=== PATIENT | male | born 1950 | race Caucasian/White ===

== ENCOUNTER 2019-07-10 15:00 | Outpatient (RCR) | payer OTHER, MEDICARE, SELFPAY ==
[2019-06-25 09:22] VITALS: BMI 35.5
[2019-06-25 09:31] VITALS: BMI 35.5
== END 2019-09-23 23:59 | disposition home or self-care (01) ==
LOC: ANHDMC 15:00
PROVIDERS: PCP Family Medicine; Visit Provider Family Medicine
DX: E11.65 Type 2 diabetes mellitus with hyperglycemia (principal); Z71.3 Dietary counseling and surveillance; Z71.89 Other specified counseling
CPT/HCPCS: 97802; G0108

== ENCOUNTER → 2019-09-22 10:15 | Outpatient (CLI) | payer MEDICARE, SELFPAY ==
--- NOTE | ~2019-09-22 | XR_ITS ---
EXAMINATION: XR shoulder LT min 2V DATE: 09/22/2019 10:47 INDICATION: Chronic left shoulder pain. TECHNIQUE: 4 views of left shoulder were obtained. COMPARISON: None. FINDINGS: Bone alignment is normal. No fracture. There is mild osteoarthritis of glenohumeral joint a nd acromioclavicular joint characterized by tiny osteophytes. IMPRESSION: 1. Mild polyarticular osteoarthritis. Reviewed, dictated and finalized at location A. RIENCE PLANNING STRATEGIST
--- NOTE | ~2019-09-22 | XR_ITS ---
EXAMINATION: XR elbow LT min 3V DATE: 09/22/2019 10:47 INDICATION: Chronic left elbow pain. TECHNIQUE: 4 views of left elbow were obtained. COMPARISON: None. FINDINGS: Bone alignment is normal. No fracture. There is mild elbow joint osteoarthritis characteriz ed by tiny marginal osteophytes. There are enthesophytes at the medial and lateral humeral epicondyle s. No joint effusion. IMPRESSION: 1. Mild elbow joint osteoarthritis. Reviewed, dictated and finalized at location A. D PROTECTIVE SERVICES SPECIALIST
== END ==
PROVIDERS: PCP Family Medicine; Visit Provider Family Medicine
DX: G89.29 Other chronic pain (principal); M19.012 Primary osteoarthritis, left shoulder; M19.022 Primary osteoarthritis, left elbow
CPT/HCPCS: 73030; 73080

== ENCOUNTER 2019-11-13 12:30 | Outpatient (RCR) | payer MEDICARE, SELFPAY ==
--- NOTE | 2019-10-10 15:56 | PTOPEVAL ---
INITIAL PHYSICAL THERAPY EVALUATION and PLAN OF CARE Thank you for referring ADY to [facility]. He will be seen in PT 2x/wk for 2 wks, then 1x/wk for 3 wks. Please review, sign, date and return this plan of care SRIKANTH. I agree with and certify that the following plan of care is medically necessary. Referring Physician Date Admitting Provider: Attending Provider: Clifford Vasquez MD Referring Provider: *PT Outpatient Evaluation Start: 10/10/19 12:47 Freq: Status: Active Protocol: Document 10/10/19 12:47 FOREIGN (Rec: 10/10/19 14:26 FOREIGN [id number]) Therapy Assessment Status Assessment Status Assessment Status Evaluation Outpatient Past Medical History Neurological History Hx Cerebrovascular Accident (CVA) Yes: father Hx Dementia Yes: mother Hx Migraine Yes: with change of weather Cardiovascular History Hx Hypercholesterolemia Yes Hx Hypertension Yes Respiratory History Hx Respiratory Disorders No Significant History Gastrointestinal History Hx Gastrointestinal Disorders No Significant History Genitourinary History Hx Genitourinary Disorders No Significant History Musculoskeletal History Hx Arthritis Yes Hx Other Musculoskeletal Disorders Yes: bilat carpal tunnel surgery Endocrine History Hx Diabetes Yes Evaluation Information Problem Diagnosis L shoulder pain - biceps tendinitis Onset May 2019 Subjective Information ADY reports that his shoulders Query Text:As Reported By Patient/ always cracked, pop with Family movement even as a kid. Fall 2018 - Dragging limbs with lawn tractor - L arm got pulled behind him. Arm began to hurt him a few days after - then eventually discomfort went away. Earlier trauma - in the summer - fell down on step ladder - caught himself on ladder with his shoulders in odd position - didn't have as much pain as he thought he would. In May - began exercising due to being dx with DM. Was using light weights with UE's - began to have L shoulder pain. Has progressed to 10# dumb bells. This past week - L shoulder hasn't been too bad.
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
== END 2019-11-13 14:50 | disposition home or self-care (01) ==
LOC: ANHPT 12:30
PROVIDERS: PCP Family Medicine; Visit Provider Orthopaedic Surgery
DX: M75.22 Bicipital tendinitis, left shoulder (principal)
CPT/HCPCS: 97110; 97140; 97161

== ENCOUNTER 2020-03-05 14:46 | Outpatient (CLI) | payer MEDICARE, SELFPAY | END 2020-03-05 14:47 | disposition home or self-care (01) | LOC: ANHAUDIO 14:49 | PROVIDERS: PCP Family Medicine; Visit Provider Otolaryngology | DX: H90.3 Sensorineural hearing loss, bilateral (principal) | CPT/HCPCS: 92557; 92567 ==

== ENCOUNTER 2020-03-12 13:35 | Outpatient (CLI) | payer MEDICARE, SELFPAY ==
--- NOTE | ~2020-03-12 | CT_ITS ---
EXAMINATION: CT sinus wo con DATE: 03/12/2020 14:15 INDICATION: Nasal polyps TECHNIQUE: Computed tomography (CT) of the paranasal sinuses was performed without intravenous contra st. Coronal reconstructions were obtained. Iterative reconstruction technique was employed. The dose- length product was 265.49 mGy-cm. COMPARISON: None FINDINGS: Mild to moderate mucosal thickening throughout the bilateral ethmoid, maxillary and sphenoid sinuses and at the bilateral frontoethmoidal recesses. Bilateral ostiomeatal units are patent. There is conch a bullosa of the bilateral middle turbinates. There is mild rightward deviation of the nasal septum w ith right-sided spike. Orbits are normal. Moderate osteoarthritis at the left temporomandibular joint . Mastoid air cells and middle ear cavities are clear. IMPRESSION: 1. Mild to moderate mucosal thickening throughout the paranasal sinuses. Reviewed, dictated and finalized at location A.
== END 2020-03-12 13:36 | disposition home or self-care (01) ==
PROVIDERS: PCP Family Medicine; Visit Provider Otolaryngology
DX: J32.9 Chronic sinusitis, unspecified (principal); J34.2 Deviated nasal septum
CPT/HCPCS: 70486

== ENCOUNTER 2020-03-21 08:51 | Outpatient (CLI) | payer MEDICARE, SELFPAY ==
--- NOTE | ~2020-03-21 | MR_ITS ---
. EXAMINATION: MR IAC wo/w con DATE: 03/21/2020 10:52 INDICATION: Other specified hearing loss, unspecified ear. TECHNIQUE: Magnetic resonance imaging (MRI) of the brain, brainstem, and internal auditory canals was performed without and with 20 mL MultiHance intravenous contrast. Sequences included sagittal and ax ial T1-weighted FSE, axial diffusion-weighted FS EPI, axial T2*-weighted GRE, axial T2-weighted FLAIR Propeller, axial T2-weighted Propeller, small ftpzr-li-yder coronal FIESTA, small nqdhb-bk-gldk jacqueline nal T1-weighted FSE, and small hoitl-xb-emmh axial T1-weighted SPGR. Postcontrast sequences included axial T1-weighted FSE, small zdxbf-oe-uxrm coronal T1-weighted FSE, and small rixqb-bw-vmjp axial T1- weighted SPGR. Apparent diffusion coefficient (ADC) maps were created. COMPARISON: Sinuses CT 03/12/2020 FINDINGS: There are scattered areas of nonspecific increased T2-weighted signal intensity in the cere bral white matter, which is within normal limits for the patient's age. There is no intracranial hemo rrhage, acute infarction, or abnormal intracranial mass lesion. The ventricles are normal in size. Th ere is mucosal thickening in the paranasal sinuses. The orbits are normal. The internal auditory phu ls and inner and middle ears are normal. IMPRESSION: 1. Normal aging brain. Reviewed, dictated and finalized at location A. IMPRESSION: 1. Normal aging brain.
[2020-03-21 10:25] LABS: Estimated Glomerular Filt Rate > 60
== END 2020-03-21 08:52 | disposition home or self-care (01) ==
LOC: ANHIMG 08:57
PROVIDERS: PCP Family Medicine; Visit Provider Otolaryngology
DX: H90.8 Mixed conductive and sensorineural hearing loss, unspecified (principal)
CPT/HCPCS: 70553; A9577

== ENCOUNTER 2020-05-29 00:27 | Outpatient (CLI) | payer MEDICARE, SELFPAY ==
[2020-05-29 18:04] LABS: SARS-CoV-2 RNA PCR Negative
== END 2020-05-29 00:28 | disposition home or self-care (01) ==
LOC: ANHCOVIDDT 00:27
PROVIDERS: PCP Family Medicine; Visit Provider Internal Medicine Gastroenterology
DX: Z01.812 Encounter for preprocedural laboratory examination (principal); Z20.828 Contact with and (suspected) exposure to other viral communicable diseases
CPT/HCPCS: 87635; C9803; U0003

== ENCOUNTER 2020-06-29 00:33 | Outpatient (CLI) | payer MEDICARE, SELFPAY ==
[2020-06-29 18:51] LABS: SARS-CoV-2 RNA PCR Negative
== END 2020-06-29 00:34 | disposition home or self-care (01) ==
LOC: ANHCOVIDDT 00:33
PROVIDERS: PCP Family Medicine; Visit Provider Internal Medicine Gastroenterology
DX: Z01.812 Encounter for preprocedural laboratory examination (principal); Z20.828 Contact with and (suspected) exposure to other viral communicable diseases
CPT/HCPCS: 87635; C9803; U0003

== ENCOUNTER 2020-07-02 00:31 | Day surgery (SDC) | payer MEDICARE, SELFPAY ==
[2020-05-26 09:47] VITALS: BMI 37.8
[2020-06-25 10:21] VITALS: BMI 37.8
[2020-07-02 11:39] VITALS: BP 139/68; PULSE 62; RESP 18; TEMP 36.2; O2SAT 98
--- NOTE | 2020-07-02 11:46 | WPDANESEPPF ---
Anes - Initial Pre Proc Eval Procedure: Operation Date: 07/02/20 13:00 Proposed Procedures p Screening Colonoscopy - Dean Ortiz MD Date/Time: 07/02/20 11:46 Surgeon: Dean Ortiz MD Pre Op Diagnosis: neoplasm screening Patient Data Age: 70 Gender: M Height: 5 ft 6.5 in Weight: 102.9 kg Last Vital Signs Temp 97.2 F L 07/02/20 11:39 Pulse 62 07/02/20 11:39 Resp 18 07/02/20 11:39 BP 139/68 07/02/20 11:39 Pulse Ox 98 07/02/20 11:39 Allergies Allergy/AdvReac Type Severity Reaction Status Date / Time No Known Allergies Verified 07/02/20 11:37 Home Medications Medication Instructions Recorded Confirmed Type amlodipine 5 mg tablet 5 mg PO DAILY 06/09/19 05/26/20 History finasteride 5 mg tablet 5 mg PO DAILY 06/09/19 05/26/20 History rizatriptan 10 mg tablet See Rx Instructions PO .COMPLEX 06/09/19 05/26/20 History pen needle, diabetic 32 gauge x #100 each 10/27/19 05/25/20 Rx 5/32 lancets #102 each 10/29/19 05/25/20 Rx hydrochlorothiazide 12.5 mg capsule 12.5 mg PO DAILY #30 cap 12/16/19 05/26/20 Rx terbinafine HCl 250 mg tablet 250 mg PO DAILY #90 tablet 03/31/20 05/26/20 Rx blood-glucose meter #100 ea 05/10/20 05/25/20 Rx insulin glargine 100 unit/mL (3 13 unit SUB-Q DAILY ml 05/25/20 06/25/20 History mL) subcutaneous pen acetaminophen [Tylenol] 325 mg PO ONCE PRN 05/26/20 05/26/20 History cetirizine 10 mg PO DAILY 05/26/20 05/26/20 History cyclosporine [Restasis] 1 drp OPHTHALMIC (EYE) BID 05/26/20 05/26/20 History multivitamin [Men's Multi-Vitamin] 1 tablet PO DAILY 05/26/20 05/26/20 History naproxen [Naprosyn] 250 mg PO BID PRN 05/26/20 05/26/20 History quinapril 40 mg tablet 40 mg PO DAILY #90 tablet 06/21/20 06/25/20 Rx sitagliptin 100 mg tablet 100 mg PO DAILY #90 tablet 06/21/20 06/25/20 Rx tamsulosin 0.4 mg capsule 0.4 mg PO DAILY #90 cap 06/21/20 06/25/20 Rx simvastatin 40 mg tablet 40 mg PO HS #90 tablet 06/22/20 06/25/20 Rx Patient hx anesthesia problems: none Family hx anesthesia problems: none PMFSH Past Medical History Medical History (Updated 05/25/20 @ 10:16 by Jackson Castro MD) Biceps tendinitis of left shoulder BPH without obstruction/lower urinary tract symptoms Carpal tunnel syndrome Chronic left shoulder pain Chronic low back pain with right-sided sciatica Chronic pain of left elbow Colon cancer screening Controlled diabetes mellitus with long-term current use of insulin Degenerative arthritis of left shoulder region Deviated nasal septum Dry eyes Essential (primary) hypertension Hearing loss Migraine without aura and without status migrainosus, not intractable Mixed hyperlipidemia Nocturia Osteoarthritis involving multiple joints on both sides of body Recurrent erosion of left cornea Seasonal allergic rhinitis Tinnitus Uncontrolled type 2 diabetes mellitus with hyperglycemia, with long-term current use of insulin Family History Family History Mother Diabetes mellitus Family history of Alzheimer's disease Family history of dementia, Onset Age: 88 Grandparent Diabetes mellitus, Onset Age: 70 Sibling Patient's sister is , Onset Age: 60 Social History Social History Smoking status: Never smoker Alcohol intake: current Drinks per week: 1 Substance use: never Substance use type: does not use Living arrangements: with family Additional occupation/education comments: Retired from [employer] Spiritual care concerns: No Anes - Eval Final PreProcedure Day of Procedure 07/02/20 11:46 Patient weight: obese Heart: regular rate and rhythm Lungs: clear to auscultation Airway: Mallampati scale class II Neurological: alert and oriented Last oral intake: >/= 8 hours ASA classification: III Emergent: no Anesthetic plan: proce
[2020-07-02] MEDS: LACTATED RINGERS 1,000 ML 150 ML IV CONT (11:50)
[2020-07-02 11:51] LABS: Glucose Point of Care 105 (65-105)
--- NOTE | 2020-07-02 12:38 | PM.HPGS ---
History of Present Illness History of Present Illness Consent: Risks, benefits, and alternatives have been discussed and questions answered. Patient agrees to proceed with procedure. Chief complaint: neoplasm screening Narrative: Emerson Garcia Jr. is a 70 year old male here for screening colonoscopy, last one about 9 years ago. Review of Systems Constitutional: Constitutional: Denies headache(s) and Denies weakness Eyes: Eyes: Denies blurry vision ENT: Reports Normal hearing present, Denies headache(s) and Denies neck pain Cardiovascular: Cardiovascular: Denies chest pain and Denies dyspnea Respiratory: Respiratory: Denies dyspnea Gastrointestinal: Gastrointestinal: Reports no additional gastrointestinal complaints Genitourinary: Genitourinary: Denies dysuria Musculoskeletal: Musculoskeletal: Denies neck pain Integumentary/Breasts: Skin/Breast: Denies dry skin Neurologic: Reports Normal hearing present, Denies headache(s) and Denies weakness Psychiatric: Psychiatric: Denies anxiety Endocrine: Endocrine: Denies change in body appearance Hematologic/Lymphatic: Hematologic/Lymphatic: Denies easy bleeding Allergic/Immunologic: Allergic/Immunologic: Denies urticaria PMFSH Past Medical History Medical History (Updated 05/25/20 @ 10:16 by Jackson Castro MD) Biceps tendinitis of left shoulder BPH without obstruction/lower urinary tract symptoms Carpal tunnel syndrome Chronic left shoulder pain Chronic low back pain with right-sided sciatica Chronic pain of left elbow Colon cancer screening Controlled diabetes mellitus with long-term current use of insulin Degenerative arthritis of left shoulder region Deviated nasal septum Dry eyes Essential (primary) hypertension Hearing loss Migraine without aura and without status migrainosus, not intractable Mixed hyperlipidemia Nocturia Osteoarthritis involving multiple joints on both sides of body Recurrent erosion of left cornea Seasonal allergic rhinitis Tinnitus Uncontrolled type 2 diabetes mellitus with hyperglycemia, with long-term current use of insulin Family History Family History Mother Diabetes mellitus Family history of Alzheimer's disease Family history of dementia, Onset Age: 88 Grandparent Diabetes mellitus, Onset Age: 70 Sibling Patient's sister is , Onset Age: 60 Social History Social History Smoking status: Never smoker Alcohol intake: current Drinks per week: 1 Substance use: never Substance use type: does not use Living arrangements: with family Additional occupation/education comments: Retired from [employer] Spiritual care concerns: No Meds Home Medications and Allergies Home Medications Medication Instructions Recorded Confirmed Type amlodipine 5 mg tablet 5 mg PO DAILY 06/09/19 05/26/20 History finasteride 5 mg tablet 5 mg PO DAILY 06/09/19 05/26/20 History rizatriptan 10 mg tablet See Rx Instructions PO .COMPLEX 06/09/19 05/26/20 History pen needle, diabetic 32 gauge x #100 each 10/27/19 05/25/20 Rx 5/32 lancets #102 each 10/29/19 05/25/20 Rx hydrochlorothiazide 12.5 mg capsule 12.5 mg PO DAILY #30 cap 12/16/19 05/26/20 Rx terbinafine HCl 250 mg tablet 250 mg PO DAILY #90 tablet 03/31/20 05/26/20 Rx blood-glucose meter #100 ea 05/10/20 05/25/20 Rx insulin glargine 100 unit/mL (3 13 unit SUB-Q DAILY ml 05/25/20 06/25/20 History mL) subcutaneous pen acetaminophen [Tylenol] 325 mg PO ONCE PRN 05/26/20 05/26/20 History cetirizine 10 mg PO DAILY 05/26/20 05/26/20 History cyclosporine [Restasis] 1 drp OPHTHALMIC (EYE) BID 05/26/20 05/26/20 History multivitamin [Men's Multi-Vitamin] 1 tablet PO DAILY 05/26/20 05/26/20 History naproxen [Naprosyn] 250 mg PO BID PRN 05/26/20 05/26/20 History quinapril 40 mg tablet 40 mg PO DAILY #90 tablet 11
[2020-07-02 12:58] VITALS: BP 119/66; PULSE 57; RESP 18; O2SAT 98
[2020-07-02 13:08] VITALS: BP 115/71; PULSE 59; RESP 19; O2SAT 98
[2020-07-02 13:18] VITALS: BP 120/74; PULSE 62; RESP 20; O2SAT 98
[2020-07-02 13:23] LABS: Glucose Point of Care 96 (65-105)
== END 2020-07-02 13:31 | disposition home or self-care (01) ==
PROVIDERS: PCP Family Medicine; Visit Provider Internal Medicine Gastroenterology
PROC: 0DJD8ZZ Inspection of Lower Intestinal Tract, Via Natural or Artificial Opening Endoscopic (ICD-10-PCS; CPT 45378; principal; 2020-07-02 13:00)
DX: Z12.11 Encounter for screening for malignant neoplasm of colon (principal); K64.8 Other hemorrhoids; E11.9 Type 2 diabetes mellitus without complications; I10 Essential (primary) hypertension; E78.2 Mixed hyperlipidemia; N40.0 Benign prostatic hyperplasia without lower urinary tract symptoms; M19.90 Unspecified osteoarthritis, unspecified site; Z79.84 Long term (current) use of oral hypoglycemic drugs; Z79.4 Long term (current) use of insulin; E66.9 Obesity, unspecified; Z68.36 Body mass index [BMI] 36.0-36.9, adult
CPT/HCPCS: G0121; J2704; J7120

== ENCOUNTER → 2021-09-15 10:39 | Outpatient (CLI) | payer MEDICARE, SELFPAY ==
--- NOTE | ~2021-09-15 | US_ITS ---
EXAMINATION: US thyroid DATE: 09/15/2021 10:55 INDICATION: Nontoxic single thyroid nodule TECHNIQUE: Multiple ultrasound images of the thyroid were obtained. COMPARISON: None. FINDINGS: The right thyroid lobe measures 2.4 x 2.4 x 2.6 cm. The left thyroid lobe measures 5.0 x 2.0 x 1.5 c m. Mixed solid and cystic nodule with isoechoic solid components which are wider than tall and with smooth margins and without echogenic foci (TI-RADS 3, mildly suspicious , FNA if >=2.5 cm, annual fol lowup is >=1.5 cm) which measures 3.5 cm maximal diameter in the right thyroid and 1.4 cm in the left thyroid. There is an additional 1.7 cm wider than tall solid hypoechoic nodule with smooth well-defi pippa margins and without echogenic foci (TI-RADS 4, moderately suspicious , FNA if >=1.5 cm, annual fo llowup is >=1 cm) in the superior right thyroid lobe. IMPRESSION: 1. Multinodular goiter. Recommend ultrasound-guided biopsy of the otherwise grade 1.7 cm TI RADS 4 ri ght thyroid nodule. Could also consider biopsy of the larger lower grade 3.5 cm TI RADS 3 right thyro id nodule. Reviewed, dictated and finalized at location A. INE CUSTOMER SERVICE AGENT IMPRESSION: 1. Multinodular goiter. Recommend ultrasound-guided biopsy of the otherwise gra de 1.7 cm TI RADS 4 right thyroid nodule. Could also consider biopsy of the lar marquez lower grade 3.5 cm TI RADS 3 right thyroid nodule.
== END ==
PROVIDERS: PCP Family Medicine; Visit Provider Family Medicine
DX: E04.2 Nontoxic multinodular goiter (principal)
CPT/HCPCS: 76536

== ENCOUNTER 2021-09-27 09:30 | Outpatient (CLI) | payer MEDICARE, SELFPAY ==
--- NOTE | ~2021-09-27 | US_ITS ---
EXAMINATION: US FNA w image guidance DATE: 09/27/2021 10:42 INDICATION: Nontoxic multinodular goiter. TECHNIQUE: The procedure and its benefits and risks were discussed with the patient. Risks specifically discusse d included bleeding. The patient verbalized understanding of the risks and agreed to proceed. The nec k was prepped and draped in the usual sterile manner. 1% lidocaine was used for local anesthesia. 7 passes were made with a 25G needle into the lesion under ultrasound guidance. There were no immedia te complications. The patient understood to call the ordering physician for results after a week and a half and verbalized that understanding. FINDINGS: Grayscale ultrasound images demonstrate needles advanced into a 1.7 cm nodule in superior right thyro id lobe for biopsy. IMPRESSION: 1. Ultrasound-guided fine needle aspiration of a right thyroid nodule. Reviewed, dictated and finalized at location A. STICS SPECIALIST
== END 2021-09-27 09:31 | disposition home or self-care (01) ==
PROVIDERS: PCP Family Medicine; Visit Provider Family Medicine
DX: E04.2 Nontoxic multinodular goiter (principal)
CPT/HCPCS: 10005; 88173; 88305

== ENCOUNTER → 2021-09-29 14:06 | Outpatient (CLI) | payer MEDICARE, SELFPAY ==
--- NOTE | ~2021-09-29 | XR_ITS ---
EXAMINATION: XR elbow LT min 3V DATE: 09/29/2021 14:18 INDICATION: Lateral epicondylitis, left elbow. Left elbow pain. TECHNIQUE: 4 views of left elbow were obtained. COMPARISON: Left elbow radiographs 09/22/2019 FINDINGS: Bone alignment is normal. No fracture. There is mild elbow joint osteoarthritis characteriz ed by tiny osteophytes. There is an enthesophyte at lateral humeral epicondyle. IMPRESSION: 1. Mild elbow joint osteoarthritis. Reviewed, dictated and finalized at location A. RINTENDENT MEASUREMENT
== END ==
PROVIDERS: PCP Family Medicine; Visit Provider Family Medicine
DX: M77.12 Lateral epicondylitis, left elbow (principal); M19.022 Primary osteoarthritis, left elbow
CPT/HCPCS: 73080

== ENCOUNTER 2021-11-02 11:24 | Outpatient (CLI) | payer MEDICARE, SELFPAY ==
--- NOTE | 2021-11-02 11:36 | ECG_ITS ---
Measurements Intervals [place] Rate: 58 P: -8 TX: 218 QRS: -36 QRSD: 106 T: 14 QT: 407 QTc: 401 Interpretive Statements SINUS BRADYCARDIA WITH FIRST DEGREE AV BLOCK LEFT ANTERIOR FASCICULAR BLOCK MODERATE VOLTAGE CRITERIA FOR LVH, CONSIDER NORMAL VARIANT [MEETS CRITERIA IN ONE OF: R(aVL), S(V1), R(V5), R(V5/V6)+S(V1)] ABNORMAL ECG NO PREVIOUS ECG AVAILABLE FOR COMPARISON Electronically Signed On 11-02-2021 15:58:05 CDT by Blu Roblero M.D.
[2021-11-02 12:17] LABS: Anion Gap 7 mmol/L (8-16); Blood Urea Nitrogen 14 mg/dL (9-20); Calcium 9.2 mg/dL (8.4-10.2); Carbon Dioxide 29 mmol/L (22-30); Chloride 103 mmol/L (98-107); Estimated Glomerular Filt Rate > 60; Glucose 153 mg/dL (65-110); Potassium 3.8 mmol/L (3.4-5.0); Sodium 139 mmol/L (137-145)
== END 2021-11-02 11:25 | disposition home or self-care (01) ==
LOC: ANHSURGERY 11:31
PROVIDERS: Anesthesiology; PCP Family Medicine; Visit Provider Otolaryngology
DX: Z01.818 Encounter for other preprocedural examination (principal); I10 Essential (primary) hypertension; E11.9 Type 2 diabetes mellitus without complications; Z79.4 Long term (current) use of insulin; R94.31 Abnormal electrocardiogram [ECG] [EKG]
CPT/HCPCS: 36415; 80048; 93005

== ENCOUNTER 2021-11-08 00:29 | Day surgery (SDC) | payer MEDICARE, SELFPAY ==
--- NOTE | 2021-10-28 14:35 | PC.NURSE ---
Report to the Outpatient Waiting Room, entrance under the green pavilion located off [facility], at time _0815 on date _11/08/21 . OR Time: _1015 . - You and your visitor will be asked a series of questions to screen for COVID 19 for your protection. - A mask is required within the hospital. Preoperative COVID Testing Requirements: No COVID Test needed if: (proof is required; if not received patient will have Rapid Test prior to entry) - Patient has received COVID Vaccine at least 14 days prior to procedure date or - Patient has positive COVID test result within last 90 days of surgery date. COVID Test needed if above criteria is not met If not COVID vaccinated a COVID test must be conducted within 72 hours of surgery and patient is asked to isolate self from time of testing until procedure. You will go to the [facility] for your COVID testing. The [facility] is located at the corner of [address] [facility]. You will only be called if COVID results are positive and your surgeon may reschedule your elective surgery date. Patients may have clear liquids (water, carbonated beverages, clear teas, apple juice) until 3 hours prior to surgery with a maximum of 20 ounces. - No food from midnight until time of surgery Take the following medications with a SIP of water the morning of surgery: _AMLODIPINE,EYE DROPS Medications to discontinue per physician MULTI VITAMIN 3 DAYS PRE OP Date to take last dose_11/04/21 Please no make-up, nail beninese, hairspray, perfume, deodorant, or body powder the day of surgery. No jewelry (including any body piercings) or valuables the day of surgery, leave them at home. Please take a shower or bath the night before, or the morning of, surgery with an antibacterial soap. Wear comfortable, loose fitting clothing. Children are encouraged to wear pajamas. - Jewelry must be removed prior to entering the operating room. Rings and piercings that are not removed may be cut off. - The hospital will not accept responsibility for valuables. - Please leave all valuables, including medications, at home the day of surgery. If you are going home after surgery, a licensed truck driver salesperson must drive you home. - NO public transportation without another adult. - We recommend that an adult stay with you for 24 hours following discharge. - We also recommend that you do not drive, make important decision, drink alcoholic beverages, or take any drugs that were not prescribed by your health care provider for at least 24 hours after your discharge time. One visitor will be allowed to accompany the patient into the hospital. Patients visitor will be instructed to remain with patient at all times or leave the building. We will allow the visitor to come back to the postoperative area when patient is ready. Follow any additional instructions given to you from your surgeon. Telephone instructions given to _PATIENT and asked if any additional questions and then verbalized understanding. Patient advised to call surgeon office or pre surgery nurse liaison [phone] if any additional questions.
[2021-10-28 14:46] VITALS: BMI 39.0
--- NOTE | 2021-11-02 10:03 | PM.HPGS ---
History of Present Illness History of Present Illness Consent: Risks, benefits, and alternatives have been discussed and questions answered. Patient agrees to proceed with procedure. Chief complaint: right thyroid mass Narrative: Emerson Garcia Jr. is a 71 year old male with a multinodular goiter 1 nodule on the right side had atypical cells and a right thyroidectomy was suggested [facility] Past Medical History Medical History Actinic keratosis Acute non-recurrent maxillary sinusitis ADHD (attention deficit hyperactivity disorder), inattentive type Adult BMI 37.0-37.9 kg/sq m Biceps tendinitis of left shoulder BPH without obstruction/lower urinary tract symptoms Carpal tunnel syndrome Chronic left shoulder pain Chronic low back pain with right-sided sciatica Chronic pain of left elbow Colon cancer screening Controlled diabetes mellitus with long-term current use of insulin COVID-19 (08/14/21) positive home test on 08/17/2021 Degenerative arthritis of left shoulder region Deviated nasal septum Dry eyes Encounter for screening for other viral diseases COVID antibody negative on 09/21/2020 Essential (primary) hypertension Lateral epicondylitis of left elbow Mixed hyperlipidemia Multinodular goiter multinodular goiter on ultrasound 09/15/2021 Nocturia Osteoarthritis involving multiple joints on both sides of body Postconcussion syndrome (08/26/21) Recurrent erosion of left cornea Thyroid nodule greater than or equal to 1.5 cm in diameter incidentally noted on imaging study (08/26/21) 3.1 x 1.5 cm density right lobe of the thyroid on CT of the cervical spine on 08/26/2021. Thyroid biopsy reveals atypia of uncertain significance. Tinnitus Uncontrolled type 2 diabetes mellitus with hyperglycemia, with long-term current use of insulin Family History Family History Mother Diabetes mellitus Family history of Alzheimer's disease Family history of dementia, Onset Age: 88 Grandparent Diabetes mellitus, Onset Age: 70 Sibling Patient's sister is , Onset Age: 60 Social History Social History Smoking status: Never smoker Alcohol intake: current Drinks per week: 1 Substance use: never Substance use type: does not use Additional occupation/education comments: Retired from [employer] Spiritual care concerns: No Meds Home Medications and Allergies Home Medications Medication Instructions Recorded Confirmed Type acetaminophen [Tylenol] 325 mg PO ONCE PRN 05/26/20 10/28/21 History cetirizine 10 mg PO DAILY 05/26/20 10/28/21 History cyclosporine [Restasis] 1 drp OPHTHALMIC (EYE) BID 05/26/20 10/28/21 History multivitamin [Men's Multi-Vitamin] 1 tablet PO QPM 05/26/20 10/28/21 History naproxen [Naprosyn] 250 mg PO BID PRN 05/26/20 10/28/21 History fluorouracil 5 % topical cream 1 applic TOPICAL BID 14 Days #40 g 09/28/20 10/28/21 Rx hydrochlorothiazide 12.5 mg capsule 12.5 mg PO DAILY #30 cap 12/17/20 10/28/21 Rx pen needle, diabetic 32 gauge x See Rx Instructions .ROUTE 05/17/21 10/12/21 Rx .COMPLEX #100 ea quinapril 40 mg tablet 40 mg PO DAILY #90 tablet 06/17/21 10/28/21 Rx simvastatin 40 mg tablet 40 mg PO HS #90 tablet 06/17/21 10/28/21 Rx sitagliptin 100 mg tablet 100 mg PO DAILY #90 tablet 06/17/21 10/28/21 Rx tamsulosin 0.4 mg capsule 0.4 mg PO DAILY #90 cap 06/17/21 10/28/21 Rx rizatriptan 10 mg tablet See Rx Instructions PO .COMPLEX #7 09/01/21 10/28/21 Rx tablet qwhulshhgm-bqeirhlpfgpij-dkfhypth 1 tablet PO Q4H PRN #60 tablet 09/06/21 10/28/21 Rx 50 mg-325 mg-40 mg tablet amlodipine 5 mg tablet 5 mg PO DAILY #90 tablet 09/12/21 10/28/21 Rx finasteride 5 mg tablet 5 mg PO DAILY #90 tablet 09/12/21 10/28/21 Rx blood sugar diagnostic #100 ea 09/13/21 10/12/21 Rx blood-glucose meter #100 ea 08/24
--- NOTE | 2021-11-02 10:04 | PM.HPGS ---
History of Present Illness History of Present Illness Consent: Risks, benefits, and alternatives have been discussed and questions answered. Patient agrees to proceed with procedure. Chief complaint: right thyroid mass Narrative: Emerson Garcia Jr. is a 71 year old male Review of Systems Review of Systems: All systems reviewed & are unremarkable except as noted in HPI and below PMFSH Past Medical History Medical History Actinic keratosis Acute non-recurrent maxillary sinusitis ADHD (attention deficit hyperactivity disorder), inattentive type Adult BMI 37.0-37.9 kg/sq m Biceps tendinitis of left shoulder BPH without obstruction/lower urinary tract symptoms Carpal tunnel syndrome Chronic left shoulder pain Chronic low back pain with right-sided sciatica Chronic pain of left elbow Colon cancer screening Controlled diabetes mellitus with long-term current use of insulin COVID-19 (08/14/21) positive home test on 08/17/2021 Degenerative arthritis of left shoulder region Deviated nasal septum Dry eyes Encounter for screening for other viral diseases COVID antibody negative on 09/21/2020 Essential (primary) hypertension Lateral epicondylitis of left elbow Mixed hyperlipidemia Multinodular goiter multinodular goiter on ultrasound 09/15/2021 Nocturia Osteoarthritis involving multiple joints on both sides of body Postconcussion syndrome (08/26/21) Recurrent erosion of left cornea Thyroid nodule greater than or equal to 1.5 cm in diameter incidentally noted on imaging study (08/26/21) 3.1 x 1.5 cm density right lobe of the thyroid on CT of the cervical spine on 08/26/2021. Thyroid biopsy reveals atypia of uncertain significance. Tinnitus Uncontrolled type 2 diabetes mellitus with hyperglycemia, with long-term current use of insulin Family History Family History Mother Diabetes mellitus Family history of Alzheimer's disease Family history of dementia, Onset Age: 88 Grandparent Diabetes mellitus, Onset Age: 70 Sibling Patient's sister is , Onset Age: 60 Social History Social History Smoking status: Never smoker Alcohol intake: current Drinks per week: 1 Substance use: never Substance use type: does not use Additional occupation/education comments: Retired from [employer] Spiritual care concerns: No Comments social Family Medical prior history all unremarkable Meds Home Medications and Allergies Home Medications Medication Instructions Recorded Confirmed Type acetaminophen [Tylenol] 325 mg PO ONCE PRN 05/26/20 10/28/21 History cetirizine 10 mg PO DAILY 05/26/20 10/28/21 History cyclosporine [Restasis] 1 drp OPHTHALMIC (EYE) BID 05/26/20 10/28/21 History multivitamin [Men's Multi-Vitamin] 1 tablet PO QPM 05/26/20 10/28/21 History naproxen [Naprosyn] 250 mg PO BID PRN 05/26/20 10/28/21 History fluorouracil 5 % topical cream 1 applic TOPICAL BID 14 Days #40 g 09/28/20 10/28/21 Rx hydrochlorothiazide 12.5 mg capsule 12.5 mg PO DAILY #30 cap 12/17/20 10/28/21 Rx pen needle, diabetic 32 gauge x See Rx Instructions .ROUTE 05/17/21 10/12/21 Rx 5/32 .COMPLEX #100 ea quinapril 40 mg tablet 40 mg PO DAILY #90 tablet 06/17/21 10/28/21 Rx simvastatin 40 mg tablet 40 mg PO HS #90 tablet 06/17/21 10/28/21 Rx sitagliptin 100 mg tablet 100 mg PO DAILY #90 tablet 06/17/21 10/28/21 Rx tamsulosin 0.4 mg capsule 0.4 mg PO DAILY #90 cap 06/17/21 10/28/21 Rx rizatriptan 10 mg tablet See Rx Instructions PO .COMPLEX #7 09/01/21 10/28/21 Rx tablet wakwcprzao-djdqcfrdfbcxo-hnqglgfw 1 tablet PO Q4H PRN #60 tablet 09/06/21 10/28/21 Rx 50 mg-325 mg-40 mg tablet amlodipine 5 mg tablet 5 mg PO DAILY #90 tablet 09/12/21 10/28/21 Rx finasteride 5 mg tablet 5 mg PO DAILY #90 tablet 09/12/21 10/28/21
[2021-11-08] VITALS (10 sets, daily range): BP systolic 84–159; BP diastolic 43–77; PULSE 57–64; RESP 12–20; TEMP 36.1–36.6; O2SAT 98–100
--- NOTE | 2021-11-08 06:19 | WPDHPUPDATE1 ---
History and Physical Update Update Date/Time: 11/08/21 06:19 History and Physical has been reviewed, including an updated exam of the patient. There are NO changes in the patient's condition. Risks, benefits, and alternatives have been discussed and questions answered. Patient agrees to proceed with procedure.
--- NOTE | 2021-11-08 09:38 | WPDANESEPPF ---
Anes - Initial Pre Proc Eval Procedure: Operation Date: 11/08/21 11:00 Proposed Procedures p Right Thyroidectomy - Geovanny Chinchilla MD Date/Time: 11/08/21 09:38 Surgeon: Geovanny Chinchilla MD Pre Op Diagnosis: right thyroid mass Patient Data Age: 71 Gender: M Height: 1.68 m Weight: 109.79 kg Allergies Allergy/AdvReac Type Severity Reaction Status Date / Time No Known Allergies Verified 11/08/21 09:23 Home Medications Medication Instructions Recorded Confirmed Type acetaminophen [Tylenol] 325 mg PO ONCE PRN 05/26/20 11/08/21 History cetirizine 10 mg PO DAILY 05/26/20 10/28/21 History cyclosporine [Restasis] 1 drp OPHTHALMIC (EYE) BID 05/26/20 10/28/21 History multivitamin [Men's Multi-Vitamin] 1 tablet PO QPM 05/26/20 10/28/21 History naproxen [Naprosyn] 250 mg PO BID PRN 05/26/20 11/08/21 History fluorouracil 5 % topical cream 1 applic TOPICAL BID 14 Days #40 g 09/28/20 10/28/21 Rx hydrochlorothiazide 12.5 mg capsule 12.5 mg PO DAILY #30 cap 12/17/20 11/08/21 Rx pen needle, diabetic 32 gauge x See Rx Instructions .ROUTE 05/17/21 10/12/21 Rx 5/32 .COMPLEX #100 ea quinapril 40 mg tablet 40 mg PO DAILY #90 tablet 06/17/21 10/28/21 Rx simvastatin 40 mg tablet 40 mg PO HS #90 tablet 06/17/21 11/08/21 Rx sitagliptin 100 mg tablet 100 mg PO DAILY #90 tablet 06/17/21 10/28/21 Rx tamsulosin 0.4 mg capsule 0.4 mg PO DAILY #90 cap 06/17/21 11/08/21 Rx rizatriptan 10 mg tablet See Rx Instructions PO .COMPLEX #7 09/01/21 10/28/21 Rx tablet ojinykyucz-meknpllpgxtbp-trvfftkn 1 tablet PO Q4H PRN #60 tablet 09/06/21 10/28/21 Rx 50 mg-325 mg-40 mg tablet amlodipine 5 mg tablet 5 mg PO DAILY #90 tablet 09/12/21 11/08/21 Rx finasteride 5 mg tablet 5 mg PO DAILY #90 tablet 09/12/21 11/08/21 Rx blood sugar diagnostic #100 ea 09/13/21 10/12/21 Rx blood-glucose meter #100 ea 09/13/21 10/12/21 Rx lancets #102 each 09/13/21 10/12/21 Rx dextroamphetamine-amphetamine ER 10 mg PO DAILY #30 cap 09/29/21 10/28/21 Rx 10 mg 24hr capsule,extend release insulin glargine [Lantus Solostar 14 unit SUB-Q DAILY 10/28/21 11/08/21 History U-100 Insulin] Patient hx anesthesia problems: none Family hx anesthesia problems: none Results Review: All pre-operative results and documents have been reviewed as part of the pre-operative evaluation. [facility] Past Medical History Medical History Actinic keratosis Acute non-recurrent maxillary sinusitis ADHD (attention deficit hyperactivity disorder), inattentive type Adult BMI 37.0-37.9 kg/sq m Biceps tendinitis of left shoulder BPH without obstruction/lower urinary tract symptoms Carpal tunnel syndrome Chronic left shoulder pain Chronic low back pain with right-sided sciatica Chronic pain of left elbow Colon cancer screening Controlled diabetes mellitus with long-term current use of insulin COVID-19 (08/14/21) positive home test on 08/17/2021 Degenerative arthritis of left shoulder region Deviated nasal septum Dry eyes Encounter for screening for other viral diseases COVID antibody negative on 09/21/2020 Essential (primary) hypertension Lateral epicondylitis of left elbow Mixed hyperlipidemia Multinodular goiter multinodular goiter on ultrasound 09/15/2021 Nocturia Osteoarthritis involving multiple joints on both sides of body Postconcussion syndrome (08/26/21) Recurrent erosion of left cornea Thyroid nodule greater than or equal to 1.5 cm in diameter incidentally noted on imaging study (08/26/21) 3.1 x 1.5 cm density right lobe of the thyroid on CT of the cervical spine on 08/26/2021. Thyroid biopsy reveals atypia of uncertain significance. Tinnitus Uncontrolled type 2 diabetes mellitus with hyperglycemia, with long-term current use of insulin Family History Family History Mother Diabetes mellitus Family history of Alzheimer's disease Family his
[2021-11-08] MEDS: LACTATED RINGERS 1,000 ML 30 ML IV CONT ×3 (09:45→13:53)
[2021-11-08 09:55] LABS: Glucose Point of Care 143 mg/dl (65-105)
[2021-11-08] MEDS: ceFAZolin 2 GM/D5W 50 ML 2 GM/50 ML BAG IVPB (10:29)
[2021-11-08] MEDS: LIDO 1%/EPINEPHRINE/PF 1:200,000 30 ML VIAL 10 ML XX (10:40)
--- NOTE | 2021-11-08 11:29 | W.PM.PROC2 ---
Procedure Note - Detailed Date of Procedure 11/08/21 Pre-op Diagnosis right thyroid mass Post-op Diagnosis Same Procedure Performed Right thyroidectomy Surgeon Geovanny Chinchilla MD Anesthesia General Description of Procedure Patient prepped and draped usual fashion duction general anesthesia a low collar incision was made and subplatysmal flaps elevated midline strap muscle divided the [] thyroid was identified a large cyst was identified in the [] thyroid lobe with the the ligature of the superior mid middle middle pedicles were removed the isthmus was divided the parathyroid was identified and left undisturbed the recurrent laryngeal nerve was identified hematuria placed for hemostasis and closed in layers with chromic and Monocryl Drains No Packing No Pathology Yes Complications No immediate complications Condition Stable Disposition PACU
[2021-11-08] MEDS: fentaNYL CITRATE INJ (*CRX) 100 MCG/2 ML VIAL 25 MCG IV PUSH ×4 (12:18→12:27)
[2021-11-08 12:57] LABS: Glucose Point of Care 144 mg/dl (65-105)
[2021-11-08] MEDS: ONDANSETRON INJ 4 MG/2 ML VIAL IV PUSH (13:52)
[2021-11-08] MEDS: ACETAMINOPHEN 500 MG TABLET 1000 MG PO (14:34)
== END 2021-11-08 15:16 | disposition home or self-care (01) ==
PROVIDERS: PCP Family Medicine; Visit Provider Otolaryngology
PROC: (CPT 60210; principal; 2021-11-08 11:00)
DX: E04.2 Nontoxic multinodular goiter (principal); I10 Essential (primary) hypertension; E78.2 Mixed hyperlipidemia; N40.0 Benign prostatic hyperplasia without lower urinary tract symptoms; F90.0 Attention-deficit hyperactivity disorder, predominantly inattentive type; E11.9 Type 2 diabetes mellitus without complications; Z79.84 Long term (current) use of oral hypoglycemic drugs; E66.9 Obesity, unspecified; Z68.38 Body mass index [BMI] 38.0-38.9, adult
CPT/HCPCS: 60210; 36415; 80048; 82948; 88307; 93005; A9270; J0330; J0690; J1100; J2370; J2405; J2704; J3010; J7120

== ENCOUNTER 2022-10-10 08:05 | Outpatient (CLI) | payer MEDICARE, SELFPAY ==
--- NOTE | 2022-10-19 19:26 | WPDHOMESLEEP ---
Sleep Study - Home Unattended Date of Study: 10/10/22 Ordering Provider: Jackson Castro MD Interpreting Provider: Tonja Rinaldi MD Home Sleep Study Type: Apnea Link Air Height: 1.69 m Weight: 111.584 kg Body Mass Index: 39.1 Neck Circumference (inches): 18.25 [place]: 15 Reason for Sleep Study Hypersomnia Sleep History Emerson Garcia Jr is a 72-year-old retired man who complains of grinding his teeth in his sleep. Sometimes he wakes with a headache in the morning. He rarely awakens from sleep feeling short of breath. He rarely awakens at night with heartburn, belching or coughing. He rarely snores and it is rarely loud enough that others complain about it. He frequently has trouble sleeping with a cold. He does not wake up gasping for breath at night. He rarely has breathing problems at night observed by others. He does not sweat excessively at night. He occasionally falls asleep during the day, rarely involuntarily rarely rarely while driving. He does not have loss of muscle tone with strong emotion. He does not have daytime difficulties due to excessive sleepiness. He does not feel paralyzed on waking or falling asleep. He rarely has vivid dreamlike scenes on waking or falling asleep. He does not feel afraid to go to sleep. He rarely has nightmares. He rarely remembers his dreams. He occasionally has racing thoughts. He rarely feels sad or depressed. He occasionally has anxiety. He rarely has muscular tension. He rarely notices parts of his body jerking. He rarely kicks at night. He rarely has crawling and aching feelings in his legs. He rarely or occasionally has leg pain at night. He occasionally has morning jaw pain he frequently grinds his teeth during sleep. He occasionally is bothered by pain during the day. He occasionally wakes up feeling stiff in the morning. He occasionally wakes up with sore achy muscles. He rarely wakes up with pain in the neck and spine. He has insomnia and he takes antacids regularly. Normal bedtime is variable. He typically gets between 4 and 6 hours of sleep at night. He wakes up several times during the night to use the bathroom or watch TV. When he wakes at night, he may stay awake for 30 minutes or up to 2 hours. He wakes the morning by 7:00 a.m.. He takes naps in the afternoon or evening. A short nap lasting 10 or 15 minutes might be refreshing. He feels better in the morning or afternoon compared to the evening. Habits: Never smoked tobacco. Caffeine daily, ice tea. No alcohol or recreational substances. [facility] Past Medical History Medical History Actinic keratosis Acute non-recurrent maxillary sinusitis ADHD (attention deficit hyperactivity disorder), inattentive type Adult BMI 37.0-37.9 kg/sq m At low risk for fall (~09/11/22) Biceps tendinitis of left shoulder BMI 39.0-39.9,adult BPH without obstruction/lower urinary tract symptoms Carpal tunnel syndrome Chronic left shoulder pain Chronic low back pain with right-sided sciatica Chronic pain of left elbow Colon cancer screening Controlled diabetes mellitus with long-term current use of insulin Glucose was 123 with hemoglobin A1c 5.7 on 01/26/2022. Glucose 146 with hemoglobin A1c 5.8 on 05/09/2022. COVID-19 (08/14/21) positive home test on 08/17/2021 Degenerative arthritis of left shoulder region Deviated nasal septum Dry eyes Encounter for prostate cancer screening PSA 0.4 on 09/07/2022. Encounter for screening for other viral diseases COVID antibody negative on 09/21/2020 Essential (primary) hypertension GERD (gastroesophageal reflux disease) (~07/2022) Hypersomnia Lateral epicondylitis of left elbow Mixed hyperlipidemia Multinodular goiter multinodular goiter on ultrasound 09/15/2021 Nocturia Obesity (BMI 30-39.9) Osteoarthritis involving multiple joints on both sides of body Postconcussion syndrome (08/26/21) Recurrent erosion of left cornea
[2022-10-19 20:06] VITALS: BMI 39.1
== END 2022-10-11 12:04 | disposition home or self-care (01) ==
LOC: ANHCSM 08:07
PROVIDERS: PCP Family Medicine; Visit Provider Family Medicine
DX: G47.10 Hypersomnia, unspecified (principal)
CPT/HCPCS: 95806

== ENCOUNTER → 2023-03-21 11:12 | Outpatient (CLI) | payer MEDICARE, SELFPAY ==
--- NOTE | ~2023-03-21 | XR_ITS ---
XR clavicle RT DATE: 03/21/2023 11:29 INDICATION: Bone disorder TECHNIQUE: AP and angled AP views of right clavicle COMPARISON: None FINDINGS: No fracture or dislocation, periosteal reaction or bone destruction. Normal alignment at t he sternoclavicular and acromioclavicular joints. Multi-level degenerative disc of the lower cervical spine. IMPRESSION: Negative Reviewed, dictated and finalized at location B. IMPRESSION: Negative
== END ==
PROVIDERS: PCP Family Medicine; Visit Provider Family Medicine
DX: M89.8X1 Other specified disorders of bone, shoulder (principal)
CPT/HCPCS: 73000

== ENCOUNTER 2023-08-03 13:48 | Emergency (ER) | payer MEDICARE, SELFPAY ==
--- NOTE | ~2023-08-03 | XR_ITS ---
XR chest 2V DATE: 08/03/2023 14:16 INDICATION: Productive cough, congestion. TECHNIQUE: 2 views COMPARISON: None FINDINGS: Heart size is normal. Is aortic unfolding. No hilar or mediastinal enlargement. No pulmonary infiltrate or consolidation, pleural effusion or pulmonary vascular congestion or pneumo thorax is detected. IMPRESSION: No active cardiopulmonary disease Reviewed, dictated and finalized at location B. [employer]
--- NOTE | 2023-08-03 13:56 | ED.GENADULT ---
HPI - General Adult General Chief complaint: Upper Respiratory Infection Stated complaint: Congestion, Bloody Phlegm Time Seen by Provider: 08/03/23 13:58 Source: patient, RN notes reviewed and old records reviewed Mode of arrival: ambulatory Limitations: no limitations History of Present Illness HPI narrative: 73-year-old male presents to the [facility] with complaints chest congestion, cough Patient reports that he has had a productive cough with some blood-tinged sputum. Patient denies any chest pain. Denies fevers. Symptoms for at least 7 days Related Data Home Medications Medication Instructions Recorded Confirmed acetaminophen 325 mg capsule 325 mg PO ONCE PRN Pain 05/26/20 08/03/23 (Tylenol) cetirizine 10 mg capsule 10 mg PO DAILY 05/26/20 08/03/23 cyclosporine 0.05 % eye drops in a 1 drp ophthalmic (eye) BID 05/26/20 08/03/23 dropperette (Restasis) multivitamin 1 tablet PO QPM 05/26/20 08/03/23 naproxen 250 mg tablet 250 mg PO BID PRN Pain 05/26/20 08/03/23 Allergies Allergy/AdvReac Type Severity Reaction Status Date / Time No Known Allergies Allergy Verified 08/03/23 13:54 Review of Systems Review of Systems: All systems reviewed & are unremarkable except as noted in HPI and below Constitutional: Constitutional: Reports no additional constitutional complaints Eyes: Eyes: Reports no additional eye complaints ENT: Reports system reviewed and no additional complaints, except as documented Cardiovascular: Cardiovascular: Reports no additional cardiovascular complaints, Denies chest pain and Denies dyspnea Respiratory: Respiratory: Reports as per HPI, Reports chest congestion, Reports cough and Denies dyspnea Gastrointestinal: Gastrointestinal: Reports no additional gastrointestinal complaints, Denies abdominal pain, Denies nausea and Denies vomiting Musculoskeletal: Musculoskeletal: Reports no additional musculoskeletal complaints Integumentary/Breasts: Skin/Breast: Reports system reviewed and no additional complaints, except as docu Neurologic: Reports system reviewed and no additional complaints, except as documented Psychiatric: Psychiatric: Reports no additional psychiatric complaints Allergic/Immunologic: Allergic/Immunologic: Reports no additional allergic/immunologic complaints PMFSH Past Medical History Medical History Actinic keratosis Acute non-recurrent maxillary sinusitis ADHD (attention deficit hyperactivity disorder), inattentive type Adult BMI 37.0-37.9 kg/sq m At low risk for fall (~09/11/22) Biceps tendinitis of left shoulder BMI 39.0-39.9,adult BPH without obstruction/lower urinary tract symptoms Carpal tunnel syndrome Chronic left shoulder pain Chronic low back pain with right-sided sciatica Chronic pain of left elbow Colon cancer screening Controlled diabetes mellitus with long-term current use of insulin Glucose was 123 with hemoglobin A1c 5.7 on 01/26/2022. Glucose 146 with hemoglobin A1c 5.8 on 05/09/2022. Fasting glucose 135 with hemoglobin A1c 6.3 on 03/14/2023. COVID-19 (08/14/21) positive home test on 08/17/2021 Degenerative arthritis of left shoulder region Deviated nasal septum Dry eyes Encounter for prostate cancer screening PSA 0.4 on 09/07/2022. Encounter for screening for other viral diseases COVID antibody negative on 09/21/2020 Essential (primary) hypertension Family history of alpha 1 antitrypsin deficiency at least 2 siblings, 2 brothers with deficiency and others undiagnosed with lung disease. GERD (gastroesophageal reflux disease) (~07/2022) Hypersomnia Lateral epicondylitis of left elbow Mixed hyperlipidemia total cholesterol 98, triglycerides 51, HDL 43, LDL 45 on 03/14/2023. Multinodular goiter multinodular goiter on ultrasound 09/15/2021 Nocturia Obesity (BMI 30-39.9) Osteoarthritis involving multiple joints on both sides of body Pain of right clavicle X-ray of the right clavicle ne
[2023-08-03 13:59] VITALS: BP 150/76; PULSE 78; RESP 18; TEMP 36.3; O2SAT 98
== END 2023-08-03 14:44 | disposition home or self-care (01) ==
PROVIDERS: Emergency Provider Nurse Practitioner; PCP Family Medicine
DX: J40 Bronchitis, not specified as acute or chronic (principal); E78.2 Mixed hyperlipidemia; Z79.899 Other long term (current) drug therapy; Z79.1 Long term (current) use of non-steroidal anti-inflammatories (NSAID)
CPT/HCPCS: 71046; 99213; G0463

== ENCOUNTER 2024-10-24 10:49 | Outpatient (CLI) | payer MEDICARE, SELFPAY ==
--- OUTSIDE RECORDS SUMMARY | 2024-10-24 11:32 | XMS_ITS | Clinical Summary ---
Author Organization [facility] Address [address] [place] [address] Care Team Providers Care Campus Interviews Intern Name Role Phone Jackson Castro MD Primary Care Provider [phone] Allergies No known active allergies Medications amLODIPine (NORVASC) 10 MG tablet Take 1 tablet (10 mg total) by mouth daily. Active lisinopril (PRINIVIL) 40 MG tablet Take 1 tablet (40 mg total) by mouth daily. Active hydroCHLOROthia zide (MICROZIDE) 12.5 MG capsule Take 1 capsule (12.5 mg total) by mouth every morning. Active tamsulosin (FLOMAX) 0.4 MG Cap Take 1 capsule (0.4 mg total) by mouth daily. Active finasteride (PROSCAR) 5 MG tablet Take 1 tablet (5 mg total) by mouth daily. Active SITagliptin (JANUVIA) 100 MG tablet Take 1 tablet (100 mg total) by mouth daily. Active simvastatin (ZOCOR) 40 MG tablet Take 1 tablet (40 mg total) by mouth nightly at bedtime. Active meclizine (ANTIVERT) 12.5 MG tablet Take 1 tablet (12.5 mg total) by mouth 3 (three) times daily as needed. Active omeprazole EC (PRILOSEC OTC) 20 MG tablet Take 1 tablet (20 mg total) by mouth daily. Active gatifloxacin (ZYMAR) 0.5 % ophthalmic solution 1 drop 4 (four) times daily. Active cycloSPORINE (RESTASIS) 0.05 % ophthalmic emulsion 1 drop 2 (two) times daily. Active Multiple Vitamins-Minera ls (MULTIVITAL OR) Active naproxen (NAPROSYN) 250 MG tablet Take 200 mg by mouth 2 (two) times daily with meals. Active Acetaminophen 500 MG Chew Tab Acti ve Social History Tobacco Use Types Packs/Day Years Used Date Smoking Tobacco: Never Smokeless Tobacco: Never Tobacco Cessation:Counseling Given: No Alcohol Use Standard Drinks/Week Comments Never 0 (1 standard drink = 0.6 oz pur e alcohol) Sex and Gender Information Value Date Recorded Sex Assigned at Not on file Legal Sex Male 4:34 PM CDT Gender Identity Not on file Sexual Orientation Not on file Last Filed Vital Signs Vital Sign Reading Time Taken Comments Blood Pressure 154/99 12/19/2023 2:25 AM CDT Pulse 68 12/19/2023 2:25 AM CDT Temperature 36.1 C (96.9 F) 12/19/2023 2:25 AM CDT Respiratory Rate 20 12/19/2023 2:25 AM CDT Oxygen Saturation 97% 12/19/2023 2:25 AM CDT Inhaled Oxygen Concentration - - Weight 105.2 kg (232 lb) 12/19/2023 12:20 AM CDT Height 167.6 cm (5' 6 ) 12/19/2023 12:20 AM CDT Body Mass Index 37.45 12/19/2023 12:20 AM CDT Plan of Treatment Health Maintenance Due Date Last Done Comments Kidney Health Evaluation 1950 Pneumococcal Vaccine: 65+ Years (1 of 2 - PCV) 1954 Diabetes: Retinopathy Eye Exam 1966 Hepatitis C 1966 DTaP, Tdap and Td Vaccines ( 1 - Tdap) 1967 Zoster Vaccines (1 of 2) 1998 Annual Medicare Wellness Visit 2013 RSV Immunization or 60+ Years (1 - 1-dose 75+ series) 2023 COVID-19 Vaccine ( - 2023-2 5 season) 2024 Hemoglobin A1C 10/22/2024 04/23/2024, 09/24/2023, 03/14/2023 Lipid Panel 04/23/2025 04/23/2024, 09/24/2023, 03/14/2023 Meningococcal B Vaccine Aged Out No l onger eligible based on patient's age to complete this topic Meningococcal Vaccine Aged Out No brennen marquez eligible based on patient's age to complete this topic RSV Immunizations Under 20 Months Aged Out No longer eligible b ased on patient's age to complete this topic Procedures Procedure Name Priority Date/Time Associated Diagnosis Comments LIPID PANEL Routine 04/23/2024 8:38 AM CDT Diabetes mellitus ([facility]) Encounter for long-term (current) use of insulin ([facility]) HEMOGLOBIN, GLYCOSYLATED Routine 04/23/2024 8:38 AM CDT Diabetes mellitus ([facility]) Encounter for long-term (current) use of insulin ([facility]) from Last 3 Months or Most Recently Relevant to Health Maintenance Results * (ABNORMAL) HEMOGLOBIN, GLYCOSYLATED (04/23/2024 8:38 AM CDT) HGB A1C 6.3(H) <5.7 % 04/23/2024 10:15 AM CDT [facility] Comment: INCREASED RISK OF DIABETES <5.7% NON-DIABETES 5.7-6.4% INCREASED RISK FOR FUTURE DIABETES > OR = 6.5 CONSISTENT WITH DIABETES STANDARDS OF MEDICAL CARE IN DIABETES-2010 DIABETES CARE, 33(SUPP 1): S1-S61,2010 ESTIMATED AVG GLUCOSE 134 mg/dL 04/23/2024 10:15 AM CDT [facility] 04/23/2024 8:38 AM CDT us Jackson Castro MD LABORATORY Final Resul t [facility] [address] [place] [address], * LIPID PANEL (04/23/2024 8:38 AM CDT) CHOLESTEROL 112 <200.0 MG/DL 04/23/2024 9:34 AM CDT [facility] TRIGLYCERIDES 56 <150 MG/DL 04/23/2024 9:34 AM CDT [facility] HDL 46 >40.0 MG/DL 04/23/2024 9:34 AM CDT [facility] LDL (CALCULATED) 55 <100 MG/DL 04/23/20 9:34 AM CDT [facility] NON HDL CHOLESTEROL 66 <130 MG/DL 04/23 9:34 AM CDT [facility] CHOL/HDL RATIO 2.4 0.0 - 4.5 04/23/2024 9:34 AM CDT [facility] VLDL CALCULATION 11 5 - 55 MG/DL 04/23/2024 9:34 AM T [facility] LIPID INTERPRETATION 04/23/2024 9:34 AM T [facility] Comment: [facility] CONCENSUS REPORT RECOMMENDATIONS: ADULT CHILD LOW RISK: CHOLESTEROL <200 <170 TRIGLYCERIDE <150 --- HDL >=60 --- LDL <100 <110 BORDERLINE: CHOLESTEROL 200-239 170-199 TRIGLYCERIDE 150-199 --- HDL 40-59 --- LDL 100-159 110-129 HIGH RISK: CHOLESTEROL >=240 >=200 TRIGLYCERIDE >=200 --- HDL <40 --- LDL >=160 >=130 04/23/2024 8:38 AM CDT us aJckson Castro MD LABORATORY Final Resul t [facility] [address] [place] [address], from Last 3 Months or Most Recently Relevant to Health Maintenance Insurance [employer] Care Teams Campus Interviews Intern Relationship Specialty Start Date End Date Jackson Castro MD [address] [place] [address] [address] [place] [address] PCP - General FAMILY PRACTICE 08/26/21
--- OUTSIDE RECORDS SUMMARY | 2024-10-24 11:32 | XMS_ITS | Continuity of Care Document ---
Author Organization [facility] Address [address] [facility] [address] [place] [address] Phone Care Team Providers Care Anthropology Faculty Member Name Role Phone Jean-Paul Diaz MD, FACS Unavailable Unavailab le Advance Directives Directive Yes / No Effective Date File Name No Information Encounters Encounter Description Practice Location Reason(s) For Visit Diagnoses Date Provider Providers Copied on Encounter [facility], [id number] [place] [address] [address], [place], [place], [id number], tel:[phone] Lebron Kellyriccisteven No Information 0 8200 6 Joe Jeong. [address] [place] [address], [facility] [address], [place], [id number], . tel:[phone] Referring Provider: David Umanzor, [address], [place], [address]. tel:[phone] Family History Family Member Type Diagnosis Age At Onset No Information Payers Payer name Insurance type Covered constitution party ID Authoriza tion(s) No Information Social History Type Description Quantity Date Captured Comments Sex Male Smoking Status No Information Chief Complaint And Reason For Visit No Information Reason For Referral Reason For Referral No Information History Of Present Illness Encounter Date Complaint History Of Prese nt Illness No Information Functional Status Date Functional Assessmen t No Information Instructions Date Instruction Additional Infor mation No Information Assessments Type Assessment Date No Information Patient Care Teams Name Effective Dates (start - stop) Status Members No Information
--- OUTSIDE RECORDS SUMMARY | 2024-10-24 11:32 | XMS_ITS | Continuity of Care Document ---
Author Organization [facility] Address [address] [place] [address] Phone Care Team Providers Care On Site Coordinator Name Role Phone Julio Funes MD Unavailable Unavailable Allergies, Adverse Reactions, Alerts Substance Reaction Status Criticality No Known Allergies Active No Inform ation Medications Medication Instructions Dosage Effective Dates (start - stop) Status Comments Lantus Solostar U-100 Insulin 100 unit/mL (3 mL) subcutaneous pen inject by subcutaneous route as per insulin protocol 0.00 - Active rizatriptan 10 mg tablet take 1 tablet b y oral route once as needed 10 MG - Active simvastatin 40 mg tablet take 1 tablet b y oral route every day in the evening 40 MG - Active Januvia 100 mg tablet take 1 tablet by oral route every day 100 MG - Active finasteride 5 mg tablet take 1 tablet by oral route every day 5 MG - Active tamsulosin 0.4 mg capsule take 1 capsule by oral route every day 1/2 hour following the same meal each day 0.4 MG - Active hydrochlorothiazide 12.5 mg tablet take 1 tablet by oral route every day 12.5 MG - Active quinapril 40 mg tablet take 1 tablet by oral route every day 40 MG - Active amlodipine 5 mg tablet take 1 tablet by oral route every day 5 MG - Active Refresh Tears 0.5 % eye drops 10-12xd ou - Active Restasis 0.05 % eye drops in a dropperette instill 1 drop by ophthalmic route every 12 hours into affected eye(s) 1.00 drop - Active Procedures Procedure Date PUNCTAL PLUGS EYE EXAM NEW PATIENT Advance Directives Directive Yes / No Effective Date File Name No Information Encounters Encounter Description Practice Location Reason(s) For Visit Diagnoses Date Provider Providers Copied on Encounter [facility], [facility], [address] [place], [place], [id number], [place] tel:[phone] [facility] vision flucuates (chief complaint)v ision flucuates (chief complaint) Recurrent erosion of cornea, bilateralDry eye syndrome of bilateral lacrimal glands Marin Kim. [address] [place], [place], [id number], [place]. tel:[phone] Referring Provider: Abdulkadir Cavazos, [facility] [address] [place] [address], [address]. tel:[phone] Family History Family Member Type Diagnosis Age At Onset Problem No family history of Macular degeneration Problem No family history of Glaucom a Sister Problem hypertension Problem No family history of Asthma Problem No family history of Strabis mus Mother Problem hypertension Father Problem Respiratory disease Problem No family history of Amblyop ia Brother Problem hypertension Father Problem stroke Father Problem hypertension Father Problem cataract Payers Payer name Insurance type Covered republican ID Authoriza tion(s) No Information Social History Type Description Quantity Date Captured Comments Alcohol Use Details Unknown Caffeine Use Details Unknown Tobacco Use Status Current non-smoker 20 Smoking Status Never smoker Non-Smoking Tobacco Use Details : No Details Available : No Details Available Sex Male Chief Complaint And Reason For Visit From encounter dated '02/06/2020 09:30'. vision flucuates (chief complaint). Description: The 69 Year old male referred by Dr. 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 Vision fluctuates in the right eye and lefteye. It affects both near and far vision. The symptom is constant. The patient denies COVID-19 symptoms - temperature normal. Using Restasis BID OU/ Refresh Tears 10-12XD OU. Pt. is type 2 diabetic on oral meds and insulin. vision flucuates (chief complaint) Reason For Referral Reason For Referral No Information History Of Present Illness Encounter Date Complaint History Of Prese nt Illness vision flucuates The 69 Year old male referred by Dr. 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 Vision fluctuates in the right eye and left eye. It affects both near and far vision. The symptom is constant. The patient denies COVID-19 symptoms - temperature normal. Using Restasis BID OU/ Refresh Tears 10-12XD OU. Pt. is type 2 diabetic on oral meds and insulin. 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
== END 2024-10-24 10:50 | disposition home or self-care (01) ==
PROVIDERS: PCP Family Medicine; Visit Provider Otolaryngology
DX: H93.13 Tinnitus, bilateral (principal); H90.42 Sensorineural hearing loss, unilateral, left ear, with unrestricted hearing on the contralateral side; H90.71 Mixed conductive and sensorineural hearing loss, unilateral, right ear, with unrestricted hearing on the contralateral side; H73.891 Other specified disorders of tympanic membrane, right ear; H73.91 Unspecified disorder of tympanic membrane, right ear
CPT/HCPCS: 92557; 92567

== ENCOUNTER 2024-11-12 09:41 | Outpatient (CLI) | payer MEDICARE, SELFPAY ==
[2024-11-12 10:06] LABS: Basophils Percent Auto 0.7 % (0.2-1.2); Eosinophils Absolute Auto 0.3 K/mm3 (0-0.3); Eosinophils Percent Auto 4.8 % (0-4.4); Hematocrit 39.9 % (42.0-52.0); Hemoglobin 14.4 g/dL (14.0-18.0); Immature Granulocyte Absolute 0.01 K/mm3 (0.00-0.031); Immature Granulocyte Percent A 0.2 % (0-0.5); Lymphocytes Absolute Auto 1.85 K/mm3 (0.9-3.2); Lymphocytes Percent Auto 30.9 % (18.3-44.2); Mean Corpuscular HGB Conc 36.1 g/dl (32-36); Mean Corpuscular Hemoglobin 34.2 pg (26-34); Mean Corpuscular Volume 94.8 fl (80-100); Mean Platelet Volume 9.6 fl (7.4-10.4); Monocytes Absolute Auto 0.6 K/mm3 (0.1-0.6); Monocytes Percent Auto 9.5 % (2.6-8.5); Neutrophils Absolute Auto 3.2 K/mm3 (1.3-6.7); Neutrophils Percent Auto 53.9 % (45.5-73.1); Platelet Count Result 178 k/mm3 (150-375); Red Blood Count 4.21 M/mm3 (4.6-6.20); Red Cell Distribution Width 12.8 % (11.5-14.5)
[2024-11-12 10:21] LABS: Alanine Aminotransferase 33 U/L (6-50); Albumin Level 4.1 g/dL (3.5-5.1); Alkaline Phosphatase 67 U/L (38-126); Anion Gap 6 mmol/L (4-12); Aspartate Amino Transferase 33 U/L (17-59); Bilirubin,Total 0.7 mg/dL (0.2-1.3); Blood Urea Nitrogen 12 mg/dL (9-20); Calcium 9.1 mg/dL (8.4-10.2); Carbon Dioxide 30 mmol/L (22-30); Chloride 105 mmol/L (98-107); Cholesterol 110 mg/dL (0-200); Estimated Glomerular Filt Rate > 60; Glucose 145 mg/dL (65-110); HDL Direct 38 mg/dL; Sodium 141 mmol/L (137-145); Triglycerides 113 mg/dL (<150)
[2024-11-12 10:32] LABS: LDL Cholesterol Direct 49 mg/dL
[2024-11-12 10:39] LABS: Creatinine Urine 135.8 mg/dL
[2024-11-12 10:42] LABS: MALB Creatinine Ratio 7.7 mg/g (0-30); Microalbumin Urine Random 10.5 mg/L (0-16.7)
[2024-11-12 10:49] LABS: Prostate Specific Antigen 0.8 ng/mL (< OR = 4.0)
--- OUTSIDE RECORDS SUMMARY | 2024-11-12 10:50 | XMS_ITS | Continuity of Care Document ---
Author Organization [facility] Address [address] [facility] [address] [place] [address] Phone Care Team Providers Care Flat Clothier Name Role Phone Jean-Paul Diaz MD, FACS Unavailable Unavailab le Advance Directives Directive Yes / No Effective Date File Name No Information Encounters Encounter Description Practice Location Reason(s) For Visit Diagnoses Date Provider Providers Copied on Encounter [facility], [id number] [place] [address] [address], [place], [place], [id number], tel:[phone] SEC Lebron Kellyriccisteven No Information 0 8200 6 Joe Jeong. [address] [place] [address], [facility] [address], [place], [id number], . tel:[phone] Referring Provider: David Umanzor, [address], [place], [address]. tel:[phone] Family History Family Member Type Diagnosis Age [...]
--- OUTSIDE RECORDS SUMMARY | 2024-11-12 10:50 | XMS_ITS | Clinical Summary ---
Author Organization [facility] Address [address] [place] [address] Care Team Providers Care Apparel Trimmings Sales Representative Name Role Phone Jackson Castro MD Primary Care Provider [phone] Allergies No known active allergies Medications amLODIPine [...] Last Done Comments Kidney Health Evaluation 1948 Diabetes: Retinopathy Eye Exam 1966 Hepatitis C 1966 DTaP, Tdap and Td Vaccines ( 1 - Tdap) 1967 Pneumococcal Vaccine: 50+ Years (1 of 2 - PCV) 1967 Zoster Vaccines (1 of 2) 1998 [...] Routine 04/23/2024 8:38 AM CDT Diabetes mellitus ([facility]) Encounter for long-term (current) use of insulin ([facility]) HEMOGLOBIN, GLYCOSYLATED Routine 04/23/2024 8:38 AM CDT Diabetes mellitus ([facility]) Encounter for long-term (current) use of insulin ([facility]) from Last 3 Months or Most Recently Relevant to Health Maintenance Results * (ABNORMAL) HEMOGLOBIN, GLYCOSYLATED (04/23/2024 8:38 AM CDT) HGB A1C 6.3(H) <5.7 % 04/23/2024 10:15 AM CDT [facility] Comment: INCREASED RISK OF DIABETES <5.7% NON-DIABETES 5.7-6.4% INCREASED RISK FOR FUTURE DIABETES > OR = 6.5 CONSISTENT WITH DIABETES STANDARDS OF MEDICAL CARE IN DIABETES-2010 DIABETES CARE, 33(SUPP 1): S1-S61,2010 ESTIMATED AVG GLUCOSE 134 mg/dL 04/23/2024 10:15 AM CDT [facility] 04/23/2024 8:38 AM CDT us Jackson Castro MD LABORATORY Final Resul t [facility] [address] [place] [address], * LIPID PANEL (04/23/2024 8:38 AM CDT) CHOLESTEROL 112 <200.0 MG/DL 04/23/2024 9:34 AM CDT [facility] TRIGLYCERIDES 56 <150 MG/DL 04/23/2024 9:34 AM CDT [facility] HDL 46 >40.0 MG/DL 04/23/2024 9:34 AM T [facility] LDL (CALCULATED) 55 <100 MG/DL 04/23/20 9:34 AM CDT [facility] NON HDL CHOLESTEROL 66 <130 MG/DL 04/23 9:34 AM T [facility] CHOL/HDL RATIO 2.4 0.0 - 4.5 04/23/2024 9:34 AM T [facility] VLDL CALCULATION 11 5 - 55 MG/DL 04/23/2024 9:34 AM T [facility] LIPID INTERPRETATION 04/23/2024 9:34 AM T [facility] Comment: [facility] CONCENSUS REPORT RECOMMENDATIONS: ADULT CHILD LOW RISK: CHOLESTEROL <200 <170 TRIGLYCERIDE <150 --- HDL >=60 --- LDL <100 <110 BORDERLINE: CHOLESTEROL 200-239 170-199 TRIGLYCERIDE 150-199 --- HDL 40-59 --- LDL 100-159 110-129 HIGH RISK: CHOLESTEROL >=240 >=200 TRIGLYCERIDE >=200 --- HDL <40 --- LDL >=160 >=130 04/23/2024 8:38 AM CDT us Jackson Castro MD LABORATORY Final Resul t [facility] [address] [place] [address], from Last 3 Months or Most Recently Relevant to Health Maintenance Insurance [employer] Care Teams Apparel Trimmings Sales Representative Relationship Specialty Start Date End Date Jackson Castro MD [address] [place] [address] [address] [place] [address] PCP - General FAMILY PRACTICE 08/26/21
--- OUTSIDE RECORDS SUMMARY | 2024-11-12 10:50 | XMS_ITS | Continuity of Care Document ---
Author Organization [facility] Address [address] [place] [address] Phone Care Team Providers Care Brick Handler Name Role Phone Julio Funes MD Unavailable [...] Diagnoses Date Provider Providers Copied on Encounter [facility], [facility], [address] [place], [place], [id number], [place] tel:[phone] [facility] vision flucuates (chief complaint)v ision flucuates (chief complaint) Recurrent erosion of cornea, bilateralDry eye syndrome of bilateral lacrimal glands Marin Kim. [address] [place], [place], [id number], [place]. tel:[phone] Referring Provider: Abdulkadir Cavazos, [facility] [address] [place] [address], [address]. tel:[phone] Family History Family Member Type Diagnosis Age At Onset Father Problem cataract Father Problem hypertension Problem No family history of Macular degeneration Problem No family history of Glaucom a Problem No family history of Asthma Problem No family history of Strabis mus Mother Problem hypertension Father Problem Respiratory disease Problem No family history of Amblyop ia Brother Problem hypertension Father Problem stroke Sister Problem hypertension Payers Payer name Insurance type Covered republican [...]
[2024-11-12 11:40] LABS: Hemoglobin A1C 6.7 % (<5.7)
== END 2024-11-12 09:42 | disposition home or self-care (01) ==
LOC: ANHLAB 09:42
PROVIDERS: PCP Family Medicine; Visit Provider Family Medicine
DX: G47.33 Obstructive sleep apnea (adult) (pediatric) (principal); E11.9 Type 2 diabetes mellitus without complications; E78.2 Mixed hyperlipidemia; Z12.5 Encounter for screening for malignant neoplasm of prostate; Z79.4 Long term (current) use of insulin
CPT/HCPCS: 36415; 80048; 80061; 80076; 82043; 83036; 84153; 84443; 85025; G0103